=== PATIENT | male | born 1985 | race Caucasian/White ===

== ENCOUNTER 2018-10-11 13:41 | Emergency (ER) | payer SELFPAY ==
[~2018-10-11] VITALS: Ht 177.8 cm; Wt 77.3 kg
[2018-10-11 13:47] VITALS: BP 134/75; Ht 177.8 cm; Wt 77.3 kg
[2018-10-11] MEDS ORDERED: CLEOCIN HCL300 MG PO (15:26)
[2018-10-11] MEDS ORDERED: HYDROCODON-ACE1 EA10 PO (15:26)
== END 2018-10-11 14:16 | disposition home or self-care (01) ==
LOC: D.ER 13:41
DX: S81.812A Laceration without foreign body, left lower leg, initial encounter (principal); W26.8XXA Contact with other sharp object(s), not elsewhere classified, initial encounter; Y93.89 Activity, other specified; Y92.89 Other specified places as the place of occurrence of the external cause